=== PATIENT | female | born 1960 | race Caucasian/White ===

== ENCOUNTER 2022-08-08 08:10 | Outpatient (CLI) | payer OTHER, SELFPAY ==
--- NOTE | 2022-08-19 17:49 | WPDHOMESLEEP ---
Sleep Study - Home Unattended Date of Study: 08/08/22 Ordering Provider: Allyssa Garcia MD Interpreting Provider: Amie Linn, DO Home Sleep Study Type: Watch PAT Height: 1.57 m Weight: 70.307 kg Body Mass Index: 28.3 Neck Circumference (inches): 13.75 [place]: 20 Reason for Sleep Study Witnessed apneas, daytime hypersomnia Sleep History The patient is a 61-year-old female with anxiety and history of tobacco use that had a sleep study ordered by her primary care physician for evaluation of sleep apnea. The patient occasionally awakens from sleep short of breath. She frequently awakens at night with heartburn, belching or cough. She constantly snores and is constantly loudly enough that others complain. She constantly has trouble sleeping when she has a cold. She frequently wakes up gasping for air throughout the night. She frequently has breathing problems at night observed by herself or others. She frequently sweats excessively at night. She rarely has heart palpitations or irregular heartbeats during the night. She frequently falls asleep during the day but rarely falls asleep while driving. She denies sleep paralysis. She frequently has trouble at school or work due to sleepiness. She rarely experiences vivid dreamlike scenes upon awakening or falling asleep. She rarely feels afraid of going to sleep. She frequently has nightmares. She rarely remembers her dreams. She constantly has thoughts racing through her mind. She frequently feels sad, depressed and anxious. She occasionally has muscular tension. She frequently notices parts of her body jerk. She rarely has crawling and aching feelings in her legs and rarely experiences leg pain during the night. She denies grinding her teeth during sleep and denies awakening with morning jaw pain. She is occasionally bothered by pain during the day but never awakened by pain during the night. She occasionally wakes up feeling stiff in the morning. She rarely wakes up with sore or achy muscles. She rarely wakes up with pain in the neck, spine or other joints. She goes to bed at 9:30 p.m. on both weekdays and weekends. It can take her at least 1 hour to fall asleep. She wakes up 4 times throughout the night for unknown reasons. It can take her at least 30 minutes to fall back asleep. She wakes up at 8:30 a.m. on both weekdays and weekends. She is unsure how many hours of sleep she gets per night. She will stay in bed for 5 minutes after waking up in the morning. She currently lives alone. She does not consume any caffeinated beverages within 2 hours of bedtime. She does not engage in physical exercise before bedtime. She will watch television before falling asleep. She will take naps in the afternoon or the evening and they are refreshing. She consumes 1 caffeinated beverage per day. She quit smoking cigarettes 1.5 years ago. She denies alcohol and recreational drug use. [facility] Past Medical History Medical History Lab test negative for COVID-19 virus Social History Social History Smoking packs per day: 0.5 Smoking cigarettes per day: 10.0 Years smoked: 40 Smoking pack-years: 20.00 Smoking status: Former smoker Tobacco type: cigarettes Alcohol intake: current Substance use type: does not use Medications Home Medications Medication Instructions Recorded Confirmed Type valacyclovir 1 gram tablet 1,000 mg PO Q8H #21 tabs 07/26/19 07/02/22 Rx (Valtrex) escitalopram oxalate 20 mg tablet See Rx Instructions .Route 05/17/22 07/02/22 Rx .COMPLEX #90 tabs buspirone 5 mg tablet See Rx Instructions PO .COMPLEX 08/01/22 Rx #540 tabs Sleep Procedure The sleep study was completed using EXTRABANCA a technically adequate device with seven channels: peripheral arterial tone, actigraphy, body position, snor
[2022-08-19 17:59] VITALS: BMI 28.3
== END 2022-08-13 09:45 | disposition home or self-care (01) ==
PROVIDERS: PCP Family Medicine; Visit Provider Family Medicine
DX: G47.33 Obstructive sleep apnea (adult) (pediatric) (principal); F51.04 Psychophysiologic insomnia; R53.83 Other fatigue; Z87.891 Personal history of nicotine dependence
CPT/HCPCS: 95800